=== PATIENT | female | born 1985 | race Two or more races ===

== ENCOUNTER 2017-04-13 01:01 | Emergency (ER) | payer MEDICAID ==
[~2017-04-13] VITALS: Ht 157.5 cm; Wt 63.5 kg
[2017-04-13 01:20] VITALS: BP 130/72
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
[2017-04-13] MEDS ORDERED: IBUPROFEN600 MG ORAL (03:06)
[2017-04-13 03:09] VITALS: BP 130/72
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
== END 2017-04-13 03:09 | disposition home or self-care (01) ==
LOC: EMR 01:35
DX: S30.1XXA Contusion of abdominal wall, initial encounter (principal); Y04.2XXA Assault by strike against or bumped into by another person, initial encounter; Y92.9 Unspecified place or not applicable
CPT/HCPCS: 72193; 99284; Q9967

== ENCOUNTER 2017-07-28 09:18 | Emergency (ER) | payer MEDICAID ==
[~2017-07-28] VITALS: Ht 160 cm; Wt 61.2 kg
[~2017-07-28 09:18] MED LIST: IBUPROFEN600 MG ORAL
[2017-07-28 09:26] VITALS: BP 121/75
[2017-07-28 09:44] LABS: APPEARANCE,URINE CLEAR; KETONES,URINE 4+ (NEGATIVE); LEUKOCYTE ESTERASE ,URINE 1+ (NEGATIVE); NITRITE,URINE NEGATIVE (NEGATIVE); PH,URINE 6 (4.5-8.0); PROTEIN,URINE 1+ (NEGATIVE); UROBILINOGEN,URINE 1 MG/DL (0.0-1.0)
[2017-07-28 09:50] LABS: BACTERIA,URINE FEW /HPF; MUCUS,URINE FEW /LPF (NONE/OCC); RBC,URINE 0-2 /HPF (0 - 2); SQUAMOUS EPITHELIAL CELL,UR MODERATE /LPF (NONE/OCC)
[2017-07-28] MEDS ORDERED: PRENATAL FORMU1 EAC5 PO (10:04)
[2017-07-28] MEDS ORDERED: PYRIDOXINE HCL25 MG PO (10:04)
[2017-07-28 10:10] VITALS: BP 121/75
--- NOTE | 2017-07-28 10:29 | Emergency Room Report ---
History of Present Illness General Chief Complaint: General Complaint Source: Patient Present Illness HPI 31-year-old female presents ED for evaluation. States she's been feeling nauseous for the last 2 weeks. Believes she may be . Did not have a period last month. Denies any abdominal pain. Denies any vaginal bleeding or discharge. No other aggravating relieving factors. Denies any other associated symptoms Allergies: Coded Allergies: No Known Allergies (Unverified , 04/13/17) Patient History Past Medical History: none Past Surgical History: none Pertinent Family History: none Social History: Denies: smoking, alcohol use, drug use Now: Yes - MAYBE : 2 Para: 0 Immunizations: UTD Reviewed Nursing Documentation: PMH: Agreed, PSxH: Agreed Nursing Documentation-PMH Past Medical History: No Stated History Review of Systems All Other Systems: negative except mentioned in HPI Physical Exam Vital Signs Date Time Temp Pulse Resp B/P (MAP) Pulse Ox O2 Delivery O2 Flow Rate FiO2 07/28/17 09:21 98.2 71 20 121/75 100 Room Air Sp02 EP Interpretation: reviewed, normal General Appearance: no apparent distress, alert, GCS 15, non-toxic Head: normocephalic, atraumatic Eyes: bilateral eye normal inspection, bilateral eye PERRL ENT: hearing grossly normal, normal pharynx, no angioedema, normal voice Neck: full range of motion, supple/symm/no masses Respiratory: chest non-tender, lungs clear, normal breath sounds, speaking full sentences Cardiovascular #1: regular rate, rhythm, no edema Cardiovascular #2: 2+ carotid (R), 2+ carotid (L), 2+ radial (R), 2+ radial (L) , 2+ dorsalis pedis (R), 2+ dorsalis pedis (L) Gastrointestinal: normal bowel sounds, non tender, soft, non-distended, no guarding, no rebound Rectal: deferred Genitourinary: normal inspection, no CVA tenderness Musculoskeletal: back normal, gait/station normal, normal range of motion, non- tender Neurologic: alert, oriented x3, responsive, motor strength/tone normal, sensory intact, speech normal Psychiatric: judgement/insight normal, memory normal, mood/affect normal, no suicidal/homicidal ideation Reflexes: 3+ bicep (R), 3+ bicep (L), 3+ tricep (R), 3+ tricep (L), 3+ knee (R) , 3+ knee (L) Skin: normal color, no rash, warm/dry, well hydrated Lymphatic: no adenopathy Medical Decision Making Diagnostic Impression: Primary Impression: Vomiting or nausea of ER Course Hospital Course 31-year-old female presents ED complaining of nausea. Possibly Differential diagnoses include: UTI, cystitis, pregancy Clinical course Patient placed on stretcher. After initial history and physical I ordered UA, urine . UA noted to be unremarkable. + Given patient has no pain or bleeding I see no reason to check labs or US at this time Given Zofran IM in ED Diagnosis - vomiting or nausea in Stable and discharged home with prescriptions for Rx vitamins, pyridoxine. Instructed to followup with PMD. Return to ED if symptoms recur or worsen Labs Test 07/28/17 09:30 Urine Color Yellow Urine Appearance Clear Urine pH 6 (4.5-8.0) Urine Specific [place] 1.020 (1.005-1.035) Urine Protein 1+ (NEGATIVE) Urine Glucose (UA) 3+ (NEGATIVE) Urine Ketones 4+ (NEGATIVE) Urine Occult Blood Negative (NEGATIVE) Urine Nitrite Negative (NEGATIVE) Urine Bilirubin Negative (NEGATIVE) Urine Urobilinogen 1 MG/DL (0.0-1.0) Urine Leukocyte Esterase 1+ (NEGATIVE) Urine RBC 0-2 /HPF (0 - 2) Urine WBC 2-4 /HPF (0 - 2) Urine Squamous Epithelial Cells Moderate /LPF (NONE/OCC) Urine Bacteria Few /HPF (NONE) Urine Mucus Few /LPF (NONE/OCC) Urine HCG, Qualitative Positive Last Vital Signs Date Time Temp Pulse Resp B/P (MAP) Pulse Ox O2 Delivery O2 Flow Rate FiO2 07/28/17 10:10 98.2 84 20 121/75 100 Room Air Status: improved Disposition: HOME, SELF-CARE Condition: Stable Scripts Pyridoxine Hcl (PYRIDOXINE HCL) 25 Mg Tablet 25 MG PO Q8HR, #30 TAB Prov: FABRIZIO AHUMADA M.D. 07/28/17 Vit W-Ca,Fe,FA(<1 mg) ( Formula) 1 Each Tablet 1 EACH PO DAILY, #30 TAB Prov: FABRIZIO AHUMADA M.D. 07/28/17 Patient Instructions: Morning Sickness, [id number] FABRIZIO AHUMADA M.D. Jul 28, 2017 10:29
== END 2017-07-28 10:15 | disposition home or self-care (01) ==
LOC: EMR 09:30
DX: O26.90 Pregnancy related conditions, unspecified, unspecified trimester (principal); Z3A.00 Weeks of gestation of pregnancy not specified; R11.0 Nausea
CPT/HCPCS: 81003; 81025; 96372; 99284; J2405